=== PATIENT | female | born 1990 | race Caucasian/White ===

== ENCOUNTER → 2020-12-28 | Outpatient (CLI) | payer BC ==
--- NOTE | 2020-12-28 10:51 | MM ---
Reason for exam: clinical finding. Baseline mammogram. Physical Findings: Nurse Summary: 1cm nodule in the left breast at 4 o'clock and 5 o'clock (nurse gabo). MG 3D Diag Mammo W/Cad VALERIA Bilateral CC and MLO view(s) were taken. The breast tissue is heterogeneously dense. This may lower the sensitivity of mammography. There is no discrete abnormality including area of concern. No significant new findings when compared with previous films. These results were verbally communicated with the patient and result sheet given to the patient on 12/28/20. ASSESSMENT: Incomplete: need additional imaging evaluation, BI-RAD 0 RECOMMENDATION: Ultrasound of the left breast. Manage patient on a clinical basis.
--- NOTE | 2020-12-28 10:52 | USB ---
Reason for exam: additional evaluation requested from abnormal screening. US Breast Workup Limited LT Left limited breast ultrasound including focal area of concern, retroareolar and axilla demonstrates no cystic or solid lesion seen. These results were verbally communicated with the patient and result sheet given to the patient on 12/28/20. ASSESSMENT: Negative, BI-RAD 1 RECOMMENDATION: Routine screening mammogram of both breasts at age 42. Manage patient on a clinical basis.
== END | disposition home or self-care (01) ==
LOC: RADMAMWWP 08:08
PROVIDERS: ATTEND Family Medicine
DX: N63.10 Unspecified lump in the right breast, unspecified quadrant (principal); N63.20 Unspecified lump in the left breast, unspecified quadrant
CPT/HCPCS: 77062; 77066

== ENCOUNTER → 2022-09-13 | Outpatient (CLI) | payer BC ==
[2022-09-15 05:46] LABS: Herpes simplex I and/or II IgM 0.38 INDEX (<=0.90); Herpes simplex IgG II Ab 0.37 (< or = 0.90)
[2022-09-15 12:22] LABS: HLA B27 POSITIVE
[2022-09-15 19:43] LABS: Anti-DNA, DS unit <1.0 IU/mL; DNA Double-Stranded NEGATIVE (NEGATIVE)
[2022-09-15 19:44] LABS: HIV 2 AB Non-Reactive (Non-Reactive); HIV AB P24 Non-Reactive (Non-Reactive); HIV P24 AG Non-Reactive (Non-Reactive)
== END | disposition home or self-care (01) ==
LOC: LABWHC1 11:51
PROVIDERS: ATTEND Family Medicine
DX: F90.9 Attention-deficit hyperactivity disorder, unspecified type (principal); E53.8 Deficiency of other specified B group vitamins; R55 Syncope and collapse
CPT/HCPCS: 36415; 85379; 85652; 86038; 86225; 86431; 86694; 86695; 86696; 86780; 86812; 87390

== ENCOUNTER → 2024-05-30 | Outpatient (CLI) | payer BC ==
[2024-05-31 02:10] LABS: HGB 13.5 g/dL (12.0-15.0); Lymphocytes % (A) 33.6 %; MCH 32.5 pg (27.0-32.0); MCHC 32.9 g/dL (32.0-37.0); MCV 98.6 FL (80.0-97.0); Mean Platelet Volume 10.5 FL (9.5-12.2); NRBC Per 100 WBC 0 X 10*3/uL (0.00-0.01); Neutrophils % (A) 54.7 %; Platelet Count 263 X 10*3/uL (140-440); RBC 4.16 X 10*6/uL (4.10-5.20); RDW 11.9 % (11.5-14.5); WBC 7.74 X 10*3/uL (4.50-10.00)
[2024-05-31 02:11] LABS: Basophils # (A) 0.06 X 10*3/uL (0.00-0.10); Basophils % (A) 0.8 %; Eosinophils % (A) 2.6 %; Monocytes # (A) 0.62 X 10*3/uL (0.20-1.00); Neutrophils # (A) 4.24 X 10*3/uL (1.80-7.70)
[2024-05-31 02:17] LABS: Blood Urea Nitrogen 8.4 mg/dL (9.0-27.0); C Reactive Protein <0.30 mg/dL (0.00-0.80); Carbon Dioxide 25.6 mmol/L (21.6-31.8); Chloride 103 mmol/L (96-109); Glucose 91 mg/dL (70-110); Potassium 4.2 mmol/L (3.5-5.5); Rheumatoid Factor, Qnt <15 IU/mL (0-15); Sodium 139 mmol/L (135-145)
[2024-05-31 02:18] LABS: ALT 18 U/L (8-44); AST 24 U/L (13-35); Albumin 4.4 g/dL (3.8-4.9); Albumin/Globulin Ratio 1.63 Ratio (1.60-3.17); Alkaline Phosphatase 51 U/L (41-126); Calcium 9.3 mg/dL (8.7-10.3); Globulin 2.7 g/dL (1.6-3.3); Total Bilirubin 1.1 mg/dL (0.3-1.2); Total Protein 7.1 g/dL (6.2-8.2)
[2024-05-31 02:34] LABS: Hepatitis B Surface Antigen Nonreactive (Nonreactive); Hepatitis C IgG Antibody Nonreactive (Nonreactive)
[2024-05-31 02:38] LABS: Erythrocyte Sedimentation Rate 2 mm/Hr (0-20)
[2024-05-31 05:48] LABS: Cyclic Citrull Pep IgG Unit <1.5 U/mL (<=3.9); Cyclic Citrullinated Pep IgG Negative
== END | disposition home or self-care (01) ==
LOC: LABWHC1 15:39
PROVIDERS: ATTEND Internal Medicine Rheumatology
DX: M54.51 Vertebrogenic low back pain (principal)
CPT/HCPCS: 36415; 80053; 85025; 85652; 86140; 86200; 86431; 86480; 86704; 86803; 87340

== ENCOUNTER → 2024-05-30 | Outpatient (CLI) | payer BC ==
--- NOTE | 2024-05-31 08:15 | XR ---
EXAMINATION TYPE: XR lumbosacral spine 5V, XR pelvis AP view DATE OF EXAM: 05/30/2024 Comparison: 04/16/2015 Clinical History: 34-year-old female M54.51 LSPINE EX COMPLETE WITH OBL VIEW Findings: Lumbar spine: Facet arthropathy lower lumbar spine. No pars interarticularis defect seen. Mild multilevel degenerat iveth disc disease. Vertebral body heights are preserved and alignment maintained. Pelvis: SI joints appear symmetric and intact. There are tiny os acetabuli versus a some degenerative labral ossification along the superior aspect of the acetabulum. Bilateral crossover signs are noted. And shreya int space is maintained. Pubic symphysis is intact. Impression: 1. Lumbar spine: Mild multilevel degenerative disc disease. Facet arthropathy lower lumbar spine. No vertebral compression collapse or malalignment. 2. Pelvis: Either os acetabuli versus some degenerative labral ossification at the superior aspect of the hips. There are crossover signs at the hips which may be seen in the setting of femoral acetabul ar impingement syndrome. Clinically correlate. No acute osseous abnormality seen.
== END | disposition home or self-care (01) ==
LOC: RADXRMAIN 16:01
PROVIDERS: ATTEND Internal Medicine Rheumatology
DX: M51.36 Other intervertebral disc degeneration, lumbar region (principal); M47.816 Spondylosis without myelopathy or radiculopathy, lumbar region
CPT/HCPCS: 72110; 72170